=== PATIENT | male | born 1990 | race African-American/Black ===

== ENCOUNTER 2022-10-05 08:11 | Inpatient (IN) | payer OTHER, SELFPAY ==
[2022-10-05] VITALS (7 sets, daily range): BP systolic 86–118; BP diastolic 46–74; PULSE 76–89; RESP 13–21; TEMP 36.5–36.9; O2SAT 97–100; BMI 19.6
--- NOTE | ~2022-10-05 | CT_ITS ---
EXAMINATION: CT HEAD WITHOUT CONTRAST CT CERVICAL SPINE WITHOUT CONTRAST CLINICAL INFORMATION: Headache. COMPARISON: No relevant prior imaging. TECHNIQUE: House Detective images were obtained. CT imaging of the head and cervical spine was performed without contrast. Data was reformatted into multiplanar images at the acquisition workstation. This CT examination was performed using dose optimization techniques as appropriate, including one or more of the following: Automated exposure control, iterative reconstruction, and adjustment of technique factors (mA and/or kVp) according to patient size (this includes techniques or standardized protocols for targeted exams where dose is matched to indication/reason for exam). Fleischner Society criteria for the followup of incidental pulmonary nodules was implemented if appropriate. DLP: 898 mGy-cm. FINDINGS: Head: There is no acute intracranial hemorrhage or abnormal extra-axial collection. No intracranial mass effect or midline shift. Lateral and third ventricles are normal. No hydrocephalus. Black-white matter differentiation is preserved and there is no evidence of acute territorial infarct. The calvarium and skull base are intact. Mastoid air cells and middle ear cavities are well aerated. No active paranasal sinus disease. Cervical spine: Alignment is normal. Vertebral body heights are preserved. No acute cervical spinal fracture. No abnormal prevertebral soft tissue swelling. There is a broad central protrusion at C3-C4 causing at least moderate canal stenosis. Soft tissues of the neck including the thyroid gland are normal. Visualized lung apices are clear. CT/CT cervical spine wo IV con IMPRESSION: Head: No evidence of acute territorial infarct or hemorrhage. Cervical spine: There is a broad central protrusion at C3-C4 causing at least moderate canal stenosis. A dedicated cervical spinal MRI is recommended for better anatomic characterization of this finding.
--- NOTE | 2022-10-05 08:21 | ED_ITS ---
HPI - Seizure General Chief Complaint: Seizure Stated Complaint: Poss seizure per EMS Time Seen by Provider: 10/05/22 08:18 Source: EMS Limitations: other (post ictal) History of Present Illness HPI Narrative: this is a 32 years old brought in by the EMS after having a seizure. Patient as history of epilepsy very EMS is taking Keppra and Vimpat, [place] staying in [place] with and kids. At t his time the patient arrived postictal is unable to give history. MD complaint: seizure Onset (ago): hour(s) (1/2) Description of Episode: tonic-clonic movement -: minutes(s) (5) Trauma: No Seizure History: Yes Place: [facility] Possible Precipitating Event: none Related Data Home Medications Medication Instructions Recorded Confirmed albuterol sulfate 90 mcg/actuation 1 puff inhalation Q4H PRN 10/05/22 10/05/22 aerosol inhaler Shortness Of Breath Or Wheezing aspirin 81 mg tablet,delayed 81 mg PO 2XW 10/05/22 10/05/22 release escitalopram oxalate 10 mg tablet 10 mg PO DAILY PRN Anxiety 10/05/22 10/05/22 lacosamide 10 mg/mL oral solution 150 mg PO BID 10/05/22 10/05/22 levetiracetam 1,000 mg tablet 1,000 mg PO BID 10/05/22 10/05/22 lorazepam 1 mg tablet 1 mg PO DAILY PRN seizures 10/05/22 10/05/22 multivitamin 1 tab PO DAILY 10/05/22 10/05/22 Allergies Allergy/AdvReac Type Severity Reaction Status Date / Time Unable to Assess Allergy Verified 10/05/22 08:18 Review of Systems Review of Systems: Yes Unobtainable due to mental status [facility] Past Medical History [facility] Narrative: Seizure disorder Medical History (Updated 10/05/22 @ 12:33 by NICHOLAS Resendiz) Asthma Atrial fibrillation Epilepsy Severe anemia Social History Social History (Updated 10/05/22 @ 12:33 by NICHOLAS Resendiz) Alcohol intake: never Patient Tobacco Use Status: Never used Tobacco Use of substances other than those prescribed or required for medical reasons: Yes Substance Use Type: Marijuana Advance Directives: No Advance Directives Information Provided: No Physical Exam Vital Signs: Vital Signs: Last Vital Signs Temp 98.3 F 10/05/22 12:58 Pulse 80 10/05/22 13:03 Resp 16 10/05/22 13:03 BP 86/47 L 10/05/22 13:03 Pulse Ox 97 10/05/22 13:03 O2 Del Method Room Air 10/05/22 13:03 BMI result Body Mass Index 19.6 Const: General: cooperative, no acute distress, well developed, alert and awake Nutritional Appearance: average body habitus Limitations: other limitations ( post ictal status) HEENT: Head: Yes normal to inspection Ears: hearing grossly normal bilaterally General nose exam: Normal external nose present Face and sinus: Yes normal facial exam Mouth: Normal oral and palatal mucosa present Teeth and gingiva: dentition normal Throat: Yes posterior oropharynx normal Neck: Neck: Yes normal visual inspection and Yes full ROM Chest: Chest palpation & inspection: normal inspection of the chest Resp: Effort & Inspection: normal respiratory effort Auscultation: clear to auscultation bilaterally Cardio: Jugular venous distension: no JVD Rate: regular rate Rhythm: regular rhythm GI: Inspection: Yes normal to inspection Palpation (GI): Soft to palpation, not firm, nontender, no guarding and not rigid Percussion: Yes normal to percussion Skin: General skin exam: no rashes or lesions noted, elasticity normal and turgor normal Lesions: no lesions Rashes: no rashes Trauma: no lacerations or abrasions Neuro: Other: he is awake and alert but postictal appear little confuse,strenght 5/5 upper and lower extremities,reflexes plus 2 knees and upper extremities,no sensation deficit Cranial nerves: Yes CN's II-XII intact bilaterally Motor exam (neuro): 5/5 motor strength present throughout and Pronator motor function not present Course Reevaluation(s) Reevaluation #1: Spoke with [id number] 2 Months ago last seizure on keppra 750Bia and vimpat 15 ml BID (150 mg BID) Time: 09:33 Reevaluation #2: remain stable he is waiting for bed. BP at this time is 115/55 blood was given. Imaging reviewed including the cervical spine he has spinal stenosis however he has no evidence of cord compression, his strength 5/5 upper lower extremity there is no sensation deficit he was re-examined now as well, his reflexes are intact. Time: 15:30 Medications Administered Discontinued Medications Generic Name Dose Route Start Last Admin Trade Name Sam PRN Reason Stop Dose Admin Sodium Chloride 1,000 mls @ 999 mls/hr 10/05/22 08:30 10/05/22 11:56 Ns IVCONT 10/05/22 09:30 Infused .Q1H1M SERGIO Infusion Levetiracetam 1,000 mg in 100 mls @ 400 mls/hr 10/05/22 08:18 10/05/22 08:54 Keppra IV 10/05/22 08:32 Infused ONCE ONE Infusion Sodium Chloride 1,000 mls @ 999 mls/hr 10/05/22 08:30 10/05/22 11:56 Ns IVCONT 10/05/22 09:30 Infused .Q1H1M SERGIO Infusion Sodium Chloride 100 mls @ 100 mls/hr 10/05/22 10:40 10/05/22 13:10 Ns IV 10/05/22 11:39 100 mls/hr ONCE ONE Administration Levetiracetam 250 mg/ Sodium 102.5 mls @ 410 mls/hr 10/05/22 12:12 10/05/22 13:08 Chloride IV 10/05/22 12:26 410 mls/hr ONCE ONE Administration Ketorolac Tromethamine 15 mg 10/05/22 08:40 10/05/22 08:53 Ketorolac Tromethamine 15 Mg/Ml Vial IVPUSH 10/05/22 08:41 15 mg ONCE ONE Administration Medical Decision Making Medical Decision Making [facility] Narrative: patient presented after seizure per EMS he has history of epilepsy, we will obtain lab will monitor, reassess Differential Diagnosis Differential Diagnoses: The differential diagnosis associated with the presentation includes seizure disorder / alcohol withdrawal / no compliance with seizure medication Admission/Observation Consideration of admission/observation: Escalation of care including admission/observation considered Consult Healthcare Provider Management of the patient was discussed with: Hospitalist Dr landeros Lab Data [facility] Lab Attestation statement: I reviewed the patient's lab results. 10/05/22 08:27 10/05/22 08:27 Labs: Lab Results 10/05/22 10/05/22 10/05/22 Range/Units 08:27 08:27 08:27 WBC 6.0 (4.8-10.8) X10*3/uL RBC 2.14 L (4.60-5.80) X10*6/uL Hgb 6.4 L* (14.0-18.0) g/dl Hct 19.2 L* (42.0-52.0) % MCV 89.7 (80.0-98.0) fL MCH 29.9 (27.0-33.0) pg MCHC 33.3 (31.0-36.0) g/dl RDW 13.0 (11.0-16.0) % Plt Count 113 L (160-400) X10*3/uL MPV 9.8 (9.4-12.4) fL Immature Gran % (Auto) 0.3 (0.0-0.4) % Neut % (Auto) 77.7 H (45-73) % Lymph % (Auto) 11.0 L (20-40) % [place] % (Auto) 9.5 (2-11) % Eos % (Auto) 1.2 (0-4) % Baso % (Auto) 0.3 (0-2) % Lymph # (Auto) 0.7 L (1.2-4.9) X10*3/uL [place] # (Auto) 0.6 (0.1-1.2) X10*3/uL Eos # (Auto) 0.1 (0.0-0.4) X10*3/uL Baso # (Auto) 0.0 (0.0-0.2) X10*3/uL Abs Immat Gran (auto) 0.02 (0.00-0.03) X10*3/uL Absolute Neuts (auto) 4.6 (2.0-8.3) x10*3/uL Absolute Nucleated RBC 0.000 (0.0-0.012) X10*3/uL Nucleated RBC % (auto) 0.0 (0.0-0.2) /100WBC Sodium 139 (135-145) mmol/L Potassium 3.9 (3.3-5.1) mmol/L Chloride 110 H (96-108) mmol/L Carbon Dioxide 16 L (22-29) mmol/L Anion Gap 17 (12-20) BUN 13 (9-16) mg/dL Creatinine 1.23 (0.5-1.4) mg/dL Estim Creat Clear Calc 80.6 Estimated GFR > 60 Random Glucose 99 (60-115) mg/dL Calcium 9.2 (8.4-10.2) mg/dL Magnesium 2.3 (1.6-2.6) mg/dL Iron 47 (45-160) mcg/dL TIBC 250 (228-428) mcg/dL % Saturation 19 (15-50) % Unsat Iron Binding 203 ug/dL Ferritin 78 (20-250) ng/mL Total Bilirubin 0.3 (0.0-1.0) mg/dL AST 30 (5-37) U/L ALT 23 (0-40) U/L Alkaline Phosphatase 60 (39-117) U/L Lactate Dehydrogenase 201 (118-273) U/L Total Creatine Kinase (38-174) U/L Troponin I High Sens < 2.7 (<3.5-35.0) ng/L Total Protein 7.1 (6.5-8.0) g/dL Albumin 4.3 (3.5-5.0) g/dL Stool Occult Blood (NEGATIVE) Ethyl Alcohol mg/dL Blood Type Antibody Screen Crossmatch 10/05/22 10/05/22 10/05/22 Range/Units 08:27 09:13 09:20 WBC (4.8-10.8) X10*3/uL RBC (4.60-5.80) X10*6/uL Hgb (14.0-18.0) g/dl Hct (42.0-52.0) % MCV (80.0-98.0) fL MCH (27.0-33.0) pg MCHC (31.0-36.0) g/dl RDW (11.0-16.0) % Plt Count (160-400) X10*3/uL MPV (9.4-12.4) fL Immature Gran % (Auto) (0.0-0.4) % Neut % (Auto) (45-73) % Lymph % (Auto) (20-40) % [place] % (Auto) (2-11) % Eos % (Auto) (0-4) % Baso % (Auto) (0-2) % Lymph # (Auto) (1.2-4.9) X10*3/uL [place] # (Auto) (0.1-1.2) X10*3/uL Eos # (Auto) (0.0-0.4) X10*3/uL Baso # (Auto) (0.0-0.2) X10*3/uL Abs Immat Gran (auto) (0.00-0.03) X10*3/uL Absolute Neuts (auto) (2.0-8.3) x10*3/uL Absolute Nucleated RBC (0.0-0.012) X10*3/uL Nucleated RBC % (auto) (0.0-0.2) /100WBC Sodium (135-145) mmol/L Potassium (3.3-5.1) mmol/L Chloride (96-108) mmol/L Carbon Dioxide (22-29) mmol/L Anion Gap (12-20) BUN (9-16) mg/dL Creatinine (0.5-1.4) mg/dL Estim Creat Clear Calc Estimated GFR Random Glucose (60-115) mg/dL Calcium (8.4-10.2) mg/dL Magnesium (1.6-2.6) mg/dL Iron (45-160) mcg/dL TIBC (228-428) mcg/dL % Saturation (15-50) % Unsat Iron Binding ug/dL Ferritin (20-250) ng/mL Total Bilirubin (0.0-1.0) mg/dL AST (5-37) U/L ALT (0-40) U/L Alkaline Phosphatase (39-117) U/L Lactate Dehydrogenase (118-273) U/L Total Creatine Kinase 749 H (38-174) U/L Troponin I High Sens (<3.5-35.0) ng/L Total Protein (6.5-8.0) g/dL Albumin (3.5-5.0) g/dL Stool Occult Blood NEGATIVE (NEGATIVE) Ethyl Alcohol < 10 mg/dL Blood Type A Positive Antibody Screen NEGATIVE Crossmatch See Detail Independent Interpretation I performed an independent interpretation of an: CT Scan Radiology Impression Discussion of test interpretation with radiology: I have reviewed the radiologist's reading. Radiologist Impression: FINDINGS: Head: There is no acute intracranial hemorrhage or abnormal extra-axial collection. No intracranial mass effect or midline shift. Lateral and third ventricles are normal. No hydrocephalus. Black-white matter differentiation is preserved and there is no evidence of acute territorial infarct. The calvarium and skull base are intact. Mastoid air cells and middle ear cavities are well aerated. No active paranasal sinus disease. Cervical spine: Alignment is normal. Vertebral body heights are preserved. No acute cervical spinal fracture. No abnormal prevertebral soft tissue swelling. There is a broad central protrusion at C3-C4 causing at least moderate canal stenosis. Soft tissues of the neck including the thyroid gland are normal. Visualized lung apices are clear. CT/CT cervical spine wo IV con IMPRESSION: Head: No evidence of acute territorial infarct or hemorrhage. ? Cervical spine: There is a broad central protrusion at C3-C4 causing at least moderate canal stenosis. A dedicated cervical spinal MRI is recommended for better anatomic characterization of this finding. Dictated By: Patel Ruiz MD Signed By: <Electronically signed by Patel Ruiz MD in OV> 10/05/22 1052 DD/ 1002 TD/TT:? 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 History obtained fr om or confirmed by: Other ( called by me) Chronic Conditions epilepsy Critical Care Time Critical Care Time Critical Care Time: Yes Total Critical Care Time: 60 Attestation: blood transfusion order/speaking with the X 2 , taking care of the patient, talking with the hospitalist Dr Coker Discharge Plan Discharge Clinical Impression: Epileptic seizure, Anemia Patient Disposition: Admitted As Inpatient
[2022-10-05] MEDS: levETIRAcetam in NaCl (iso-os) 1,000 MG/100 ML PIGGYBACK 400 MG IV (08:33)
[2022-10-05] MEDS: 0.9 % Sodium Chloride 1,000 ML 999 ML IVCONT ×2 (08:33→10:07)
[2022-10-05 08:47] LABS: MANUAL DIFF FLAG NO
[2022-10-05 08:48] LABS: Basophils Percent Auto 0.3 % (0-2); Eosinophils Absolute Auto 0.1 X10*3/uL (0.0-0.4); Eosinophils Percent Auto 1.2 % (0-4); Imm Gran Abs Auto 0.02 X10*3/uL (0.00-0.03); Imm Gran Pct Auto 0.3 % (0.0-0.4); Lymphocytes Absolute Auto 0.7 X10*3/uL (1.2-4.9); Mean Corpuscular HGB Conc 33.3 g/dl (31.0-36.0); Mean Corpuscular Hemoglobin 29.9 pg (27.0-33.0); Mean Corpuscular Volume 89.7 fL (80.0-98.0); Mean Platelet Volume 9.8 fL (9.4-12.4); Monocytes Absolute Auto 0.6 X10*3/uL (0.1-1.2); Monocytes Percent Auto 9.5 % (2-11); Neutrophils Absolute Auto 4.6 x10*3/uL (2.0-8.3); Neutrophils Percent Auto 77.7 % (45-73); Platelet Count 113 X10*3/uL (160-400); Red Blood Count 2.14 X10*6/uL (4.60-5.80)
[2022-10-05] MEDS: Ketorolac Tromethamine 15 MG/ML VIAL IVPUSH (08:53)
--- NOTE | 2022-10-05 09:03 | PC.NURSE ---
patient brought in by EMS after witnessed seizure, prior history of seizures, patient is in post ictal state, VSS. patient had field iv 18# in the L AC, patent. Given IV keppra, fluids and toradol. patients only complaint is headache, denies headstrike. DR Ness Spoke with Ariadne [phone]
[2022-10-05 09:05] LABS: Alanine Aminotransferase 23 U/L (0-40); Albumin Level 4.3 g/dL (3.5-5.0); Alkaline Phosphatase 60 U/L (39-117); Anion Gap 17 (12-20); Aspartate Amino Transferase 30 U/L (5-37); Bilirubin Total 0.3 mg/dL (0.0-1.0); Blood Urea Nitrogen 13 mg/dL (9-16); Calcium 9.2 mg/dL (8.4-10.2); Carbon Dioxide 16 mmol/L (22-29); Chloride 110 mmol/L (96-108); Creatinine Clr Calc Pharmacy 80.6; Estimated Glomerular Filt Rate > 60; Ethanol < 10 mg/dL; Glucose Random 99 mg/dL (60-115); Magnesium 2.3 mg/dL (1.6-2.6); Potassium 3.9 mmol/L (3.3-5.1); Sodium 139 mmol/L (135-145); Total Protein 7.1 g/dL (6.5-8.0)
[2022-10-05 09:07] LABS: Hematocrit 19.2 % (42.0-52.0); Hemoglobin 6.4 g/dl (14.0-18.0)
[2022-10-05 09:20] LABS: OBS Int Ctl Valid YES; OBS1 NEGATIVE (NEGATIVE)
[2022-10-05 09:27] LABS: Troponin-I High Sensitivity < 2.7 ng/L (<3.5-35.0)
--- NOTE | 2022-10-05 09:28 | PC.NURSE ---
patient iv placed in the 20 R forearm. patient type and screen drawn and sent down. pt at cat scan
--- NOTE | 2022-10-05 10:58 | PHA.MEDREC ---
Pharmacy Consult ? Medication Reconciliation Pharmacy has completed the medication reconciliation. spoke with patient's over the phoneto confirm medications. Vimpat is prescribed for 250mg BID but confirmed 150mg BID. She reports that he takes baby aspirin OTC a few time a week.
--- NOTE | 2022-10-05 11:26 | PC.NURSE ---
patient blood tranfusion started, pt awake and alert x3. VSS, respirations eqaul and unlabored, pt shows no signs of distress able to make needs known.
[2022-10-05 11:35] LABS: Iron 47 mcg/dL (45-160); Lactate Dehydrogenase 201 U/L (118-273); Percent Iron Saturation 19 % (15-50); Total Iron Binding Capacity 250 mcg/dL (228-428); Unsaturated Iron Binding 203 ug/dL
[2022-10-05 11:55] LABS: Ferritin 78 ng/mL (20-250)
--- NOTE | 2022-10-05 12:22 | PM.IMHP ---
History of Present Illness Date of Service: 10/05/22 <NICHOLAS Resendiz - Last Filed: 10/05/22 12:41> Attending physician on admission: Elmo Cassidy <NICHOLAS Resendiz - Last Filed: 10/05/22 12:41> Chief Complaint: seizure <NICHOLAS Resendiz - Last Filed: 10/05/22 12:41> 32-year-old male with history of mild intermittent asthma, epileptic seizure disorder, patient reported history of atrial fibrillation on aspirin twice weekly who is a regular marijuana smoker but denies any alcohol use, cigarette smoking, or illicit drug use presents to the ED via EMS for evaluation breakthrough seizure. The patient is visiting the area from [place] where he resides as his sister is getting this afternoon. While in his hotel room, his reported to EMS the patient having a tonic-clonic seizure. On arrival to the ED, patient was postictal but is now able to provide history. He reports compliance with his antiepileptic medications but does endorse some increased stress recently. He denies any fevers, chills, sore throat, congestion, abd pain, n/v/d, myalgias, arthalgias, fatigue, weakness, cough, sob, chest pain. No known tick bites. On arrival to the ED, vital signs stable, the blood pressure soft. There is no leukocytosis. He has a severe normocytic anemia with H/H 6.4/19.2%, MCV 89.7, platelets 113 renal function normal, electrolyte levels normal except for CO2 of 16 hepatic function normal. Iron studies normal. LDH 201. Total CK 749. Troponin below detectable limits. Ethyl alcohol level undetectable. Keppra level pending. Stool occult blood negative. Head CT negative for any acute intracranial abnormality. CT of the cervical spine shows a broad central protrusion at C3-C4 causing at least moderate spinal canal stenosis, recommend dedicated cervical spine MRI. The patient denies any neck pain or radicular symptoms. No weakness or paresthesias in the upper extremities. In the ED, given 1000 mg IV Keppra, 50 mg ketorolac, and 2 L IV NS. <NICHOLAS Resendiz - Last Filed: 10/05/22 12:41> Review of Systems Review of Systems: General: No fevers, malaise, unintentional weight loss HEENT: No blurred vision, diplopia. No sore throat, nasal congestion, rhinorrhea, sinus pain, ear pain Cardiovascular: No chest pain, palpitations, or leg edema Respiratory: No shortness of breath, wheezing, cough GI: No abdominal pain, nausea, vomiting, diarrhea, constipation, melena, hematochezia : No dysuria, hematuria, increased urinary frequency, decreased urinary output MSK: No myalgia, back pain Neuro: No headaches, weakness, paresthesias. +seizure Skin: No rashes or lesions <NICHOLAS Resendiz - Last Filed: 10/05/22 12:41> [facility] Medical History: Medical History (Updated 10/05/22 @ 12:33 by NICHOLAS Resendiz) Asthma Atrial fibrillation Epilepsy Severe anemia <NICHOLAS Resendiz - Last Filed: 10/05/22 12:41> Social History: Social History (Updated 10/05/22 @ 12:33 by NICHOLAS Resendiz) Alcohol intake: never Patient Tobacco Use Status: Never used Tobacco Use of substances other than those prescribed or required for medical reasons: Yes Substance Use Type: Marijuana Advance Directives: No Advance Directives Information Provided: No <NICHOLAS Resendiz - Last Filed: 10/05/22 12:41> Meds Allergies/Adverse reactions: Allergies Allergy/AdvReac Type Severity Reaction Status Date / Time Unable to Assess Allergy Verified 10/05/22 08:18 <NICHOLAS Resendiz - Last Filed: 10/05/22 12:41> Active Medications: Current Medications Acetaminophen (Acetaminophen 325 Mg Tablet) 650 mg PO Q6H PRN PRN Reason: Pain, Mild (Pain Scale 1-3) Docusate Sodium (Docusate Sodium 100 Mg Capsule) 100 mg PO DAILY PRN PRN Reason: Constipation Levetiracetam 250 mg/ Sodium (Chloride) 102.5 mls @ 410 mls/hr IV ONCE ONE Stop: 10/05/22 12:26 Levetiracetam (Levetiracetam 500 Mg/5 Ml Vial) 1,250 mg IV BID SEGRIO Ondansetron HCl (Ondansetron Hcl 4 Mg/2 Ml Vial) 4 mg IVPUSH Q8H PRN PRN Reason: Nausea and Vomiting Pharmacy Consult (Consult Rx Perform Med Rec) 1 each MISCELLANE ONCE PRN PRN Reason: Consult order Sodium Chloride (0.9 % Sodium Chloride Flush 3 Ml Syringe) [address] [facility] <NICHOLAS Resendiz - Last Filed: 10/05/22 12:41> Home medications: Home Medications Medication Instructions Recorded Confirmed Last Taken Type albuterol sulfate 90 mcg/actuation 1 puff inhalation Q4H PRN 10/05/22 10/05/22 Unknown History aerosol inhaler Shortness Of Breath Or Wheezing aspirin 81 mg tablet,delayed 81 mg PO 2XW 10/05/22 10/05/22 Unknown History release escitalopram oxalate 10 mg tablet 10 mg PO DAILY PRN Anxiety 10/05/22 10/05/22 Unknown History lacosamide 10 mg/mL oral solution 150 mg PO BID 10/05/22 10/05/22 Unknown History levetiracetam 1,000 mg tablet 1,000 mg PO BID 10/05/22 10/05/22 Unknown History lorazepam 1 mg tablet 1 mg PO DAILY PRN seizures 10/05/22 10/05/22 Unknown History multivitamin 1 tab PO DAILY 10/05/22 10/05/22 Unknown History <NICHOLAS Resendiz - Last Filed: 10/05/22 12:41> Physical Exam Vital Signs and Narrative: Vital Signs: Last Vital Signs Temp 98.1 F 10/05/22 11:40 Pulse 89 10/05/22 11:40 Resp 14 10/05/22 11:40 BP 106/52 L 10/05/22 11:40 Pulse Ox 97 10/05/22 10:09 O2 Del Method Room Air 10/05/22 10:09 BMI result Body Mass Index 19.6 <NICHOLAS Resendiz - Last Filed: 10/05/22 12:41> Constitutional - Awake and Alert, No apparent distress Eyes - PERRLA, EOMI Mouth- tongue bites noted to the bilateral tongue Cardiovascular - S1S2, RRR, No edema Respiratory - Normal lung expansion, Normal respiratory effort, No respiratory distress, CTA bilaterally Gastrointestinal - NT / ND; +BS; No rebound or guarding Extremities - no calf tenderness bilaterally, no swelling Skin - Warm/Dry Neurological - Alert & oriented x3, CN II-XII in tact, 5/5 strength BUE and BLE Psychological - Appropriate affect <NICHOLAS Resendiz - Last Filed: 10/05/22 12:41> Results Labs CBC and Chem 7: 10/05/22 08:27 10/05/22 08:27 <NICHOLAS Resendiz - Last Filed: 10/05/22 12:41> Labs: Laboratory Results - last 24 hr 10/05/22 10/05/22 10/05/22 08:27 08:27 08:27 MCV 89.7 MCH 29.9 MCHC 33.3 RDW 13.0 Plt Count 113 L MPV 9.8 Immature Gran % (Auto) 0.3 Neut % (Auto) 77.7 H Lymph % (Auto) 11.0 L [place] % (Auto) 9.5 Eos % (Auto) 1.2 Baso % (Auto) 0.3 Lymph # (Auto) 0.7 L [place] # (Auto) 0.6 Eos # (Auto) 0.1 Baso # (Auto) 0.0 Abs Immat Gran (auto) 0.02 Absolute Neuts (auto) 4.6 Absolute Nucleated RBC 0.000 Nucleated RBC % (auto) 0.0 Anion Gap 17 Estim Creat Clear Calc 80.6 Estimated GFR > 60 Random Glucose 99 Calcium 9.2 Magnesium 2.3 Iron 47 TIBC 250 % Saturation 19 Unsat Iron Binding 203 Ferritin 78 Total Bilirubin 0.3 AST 30 ALT 23 Alkaline Phosphatase 60 Lactate Dehydrogenase 201 Total Creatine Kinase 749 H Total Protein 7.1 Albumin 4.3 Stool Occult Blood Ethyl Alcohol < 10 Blood Type Antibody Screen Crossmatch 10/05/22 10/05/22 09:13 09:20 MCV MCH MCHC RDW Plt Count MPV Immature Gran % (Auto) Neut % (Auto) Lymph % (Auto) [place] % (Auto) Eos % (Auto) Baso % (Auto) Lymph # (Auto) [place] # (Auto) Eos # (Auto) Baso # (Auto) Abs Immat Gran (auto) Absolute Neuts (auto) Absolute Nucleated RBC Nucleated RBC % (auto) Anion Gap Estim Creat Clear Calc Estimated GFR Random Glucose Calcium Magnesium Iron TIBC % Saturation Unsat Iron Binding Ferritin Total Bilirubin AST ALT Alkaline Phosphatase Lactate Dehydrogenase Total Creatine Kinase Total Protein Albumin Stool Occult Blood NEGATIVE Ethyl Alcohol Blood Type A Positive Antibody Screen NEGATIVE Crossmatch See Detail <NICHOLAS Resendiz - Last Filed: 10/05/22 12:41> Imaging Radiologist's Impressions: Impressions Cervical Spine CT 10/05/22 10:02 IMPRESSION: Head: No evidence of acute territorial infarct or hemorrhage. Cervical spine: There is a broad central protrusion at C3-C4 causing at least moderate canal stenosis. A dedicated cervical spinal MRI is recommended for better anatomic characterization of this finding. Head CT 10/05/22 10:02 IMPRESSION: Head: No evidence of acute territorial infarct or hemorrhage. Cervical spine: There is a broad central protrusion at C3-C4 causing at least moderate canal stenosis. A dedicated cervical spinal MRI is recommended for better anatomic characterization of this finding. <NICHOLAS Resendiz - Last Filed: 10/05/22 12:41> Assessment and Plan (1) Epileptic seizure: Status: Acute <NICHOLAS Resendiz - Last Filed: 10/05/22 12:41> (2) Anemia: Status: Acute <NICHOLAS Resendiz - Last Filed: 10/05/22 12:41> 32-year-old male with history of mild intermittent asthma, epileptic seizure disorder, patient reported history of atrial fibrillation on aspirin twice weekly who is a regular marijuana smoker but denies any alcohol use, cigarette smoking, or illicit drug use to be observed for breakthrough seizure with severe anemia. #Epilepsy with breakthrough seizure -increase keppra to 1250mg BID IV -Continue vimpat -Neuro consult -seizure precautions #Severe anemia -suspect acute on chronic but etiology unclear -No known hx bleeding disorders/anemia -Renal function normal -Iron studies normal, LDH normal. Vitamin B12, folic acid, retic count hemoglobin electrophoresis pending -1 unit PRBC given in ED -Repeat CBC @5pm, then am -peripheral smear pending -hold aspirin #Elevated CK -r/t seizure, not rhabdo #Thombocytopenia - chronicity and etiology unclear -Outpt follow up #Mild intermittent asthma -no acute exacerbation -albuterol p.r.n. # paroxysmal atrial fibrillation-rate controlled -hold aspirin DVT prophylaxis-Scp, early ambulation Full code <NICHOLAS Resendiz - Last Filed: 10/05/22 12:41> 32-year-old male with history of mild intermittent asthma, epileptic seizure disorder, patient reported history of atrial fibrillation on aspirin twice weekly who is a regular marijuana smoker but denies any alcohol use, cigarette smoking, or illicit drug use to be observed for breakthrough seizure with severe anemia. #Epilepsy with breakthrough seizure -increase keppra to 1250mg BID IV -Continue vimpat -Neuro consult -seizure precautions #Severe anemia -suspect acute on chronic but etiology unclear -No known hx bleeding disorders/anemia -Renal function normal -Iron studies normal, LDH normal. Vitamin B12, folic acid, retic count hemoglobin electrophoresis pending -1 unit PRBC given in ED -Repeat CBC @5pm, then am -peripheral smear pending -hold aspirin #Elevated CK -r/t seizure, not rhabdo #Thombocytopenia - chronicity and etiology unclear -Outpt follow up #Mild intermittent asthma -no acute exacerbation -albuterol p.r.n. # paroxysmal atrial fibrillation-rate controlled -hold aspirin DVT prophylaxis-Scp, early ambulation Full code Addendum to history and physical by the advanced practice provider, NICHOLAS Salinas I interviewed and examined the patient. I discussed their presentation and management with the ARRON. I reviewed the history and physical and agree with the documentation, with the following additions and corrections: 32yo M with mild int asthma, seizure disorder on Vimpat + Keppra [thinks he missed 1 dose last night], ?AF on ASA visiting from [place] Had tonic-clonic seizure in hotel per his report to EMS Postictal upon arrival in ED, now awake/alert Noted to have normocytic hypoproliferative anemia with Hb 6.4 Plts 113 No known hx of anemia but doesn't think he ever had blood work done FOBT neg Transfused 1u pRBCs and given 1g IV Keppra Plan admit to M/S, recheck H+H, Pathology to review peripheral smear, check HIV Increase keppra to 1250 mg bid <Elmo Cassidy MD - Last Filed: 10/05/22 14:43> Time Spent With Patient Time: Total time managing care of this patient today ____ minutes. <NICHOLAS Resendiz - Last Filed: 10/05/22 12:41> Quality Stroke Does the patient have a stroke diagnosis?: No <NICHOLAS Resendiz - Last Filed: 10/05/22 12:41> VTE Prior VTE?: No <NICHOLAS Resendiz - Last Filed: 10/05/22 12:41> VTE Risk Level:: Medical - moderate - high <NICHOLAS Resendiz - Last Filed: 10/05/22 12:41> VTE Device Contraindication: N/A - Device Ordered <NICHOLAS Resendiz - Last Filed: 10/05/22 12:41> VTE Drug Contraindication: Treatment Not Indicated <NICHOLAS Resendiz - Last Filed: 10/05/22 12:41>
[2022-10-05] MEDS: levETIRAcetam 250 MG in 0.9 % Sodium Chloride 100 ML 410 MG IV (13:08)
[2022-10-05 13:13] LABS: Immature Retic Fraction 5.6 % (2.3-13.4); Retic HGB Equivalent 35.3 pg (30.0-35.0); Reticulocyte Percent 0.9 % (0.5-1.8); Reticulocytes Absolute 0.039 X10*6/uL (0.026-0.095)
[2022-10-05 13:57] LABS: Folate 10.9 ng/mL (> or = 4.0); Vitamin B12 553 pg/mL (200-900)
--- NOTE | 2022-10-05 16:22 | PC.NURSE ---
patient requested to be d/c, spoke [facility] inpatient PA about d/c. she spoke with patient about risks, discharge was approved. patients came and picked him up.
--- NOTE | 2022-10-05 16:23 | PM.DS ---
DS: Providers Provider Date of Service: 10/05/22 Date of admission: 10/05/22 12:09 Date of discharge: 10/05/22 Primary care physician: Nonstaff Physician Admitting clinician: Carla Salinas Attending physician on admission: Elmo Cassidy Consults: 10/05/22 12:12 Consult to Neurology Routine Consulting Provider: [facility] Reason for consultation: breakthrough seizure Attending physician on discharge: Elmo Cassidy Discharging clinician: Carla Salinas DS: Diagnosis Discharge Diagnosis (1) Epileptic seizure: Status: Acute (2) Anemia: Status: Acute DS: Summary Hospital Course Hospital Course: HPI on admission: 32-year-old male with history of mild intermittent asthma, epileptic seizure disorder, patient reported history of atrial fibrillation on aspirin twice weekly who is a regular marijuana smoker but denies any alcohol use, cigarette smoking, or illicit drug use presents to the ED via EMS for evaluation breakthrough seizure.? The patient is visiting the area from [place] where he resides as his sister is getting this afternoon.? While in his hotel room, his reported to EMS the patient having a tonic-clonic seizure.? On arrival to the ED, patient was postictal but is now able to provide history.? He reports compliance with his antiepileptic medications but does endorse some increased stress recently. He denies any fevers, chills, sore throat, congestion, abd pain, n/v/d, myalgias, arthalgias, fatigue, weakness, cough, sob, chest pain. No known tick bites. On arrival to the ED, vital signs stable, the blood pressure soft.? There is no leukocytosis.? He has a severe normocytic anemia with H/H 6.4/19.2%, MCV 89.7, platelets 113 renal function normal, electrolyte levels normal except for CO2 of 16 hepatic function normal.? Iron studies normal.? LDH 201.? Total CK 749.? Troponin below detectable limits.? Ethyl alcohol level undetectable.? Keppra level pending.? Stool occult blood negative.? Head CT negative for any acute intracranial abnormality.? CT of the cervical spine shows a broad central protrusion at C3-C4 causing at least moderate spinal canal stenosis, recommend dedicated cervical spine MRI.? The patient denies any neck pain or radicular symptoms.? No weakness or paresthesias in the upper extremities.? In the ED, given 1000 mg IV Keppra, 50 mg ketorolac, and 2 L IV NS. Hospital course: Hospital course uneventful. Pt admitted to observation. Given 1250mg IV keppra. On further discussion, patient reports he did forget to take his medication last night which accounts for the breakthrough seizure this morning. Incidentally was also found to have severe anemia with H/H 6.4/19.2%. He was transfused 1 unit packed red blood cells while boarding in the ED. Unfortunately, repeat H/H was unable to be checked as patient desires to leave against medical advice. Further testing into the etiology of his anemia did take place. Stool occult blood was negative. LDH was within normal limits, iron studies normal, retic count low normal. Platelets also noted to be low at 113. Peripheral smear pending pathology report. Vitamin B12 and folic acid levels normal. Hemoglobin electrophoresis collected but pending. Also unable to assess HIV prior to patient leaving AMA. He is advised to remain off of aspirin until evaluated by his primary care provider and should also see his neurologist. He is counseled on the risks of severe anemia left 2 including heart failure, heart attack, syncope, among others. He is alert and oriented and expresses understanding. He does sign AMA paperwork. Status at Discharge Functional status at discharge: independent ambulation Overall status at discharge: patient is back to baseline Time Spent with Patient Time attestation: Total time managing care of this patient today ____ minutes. Discharge coordination time: Greater than 30 minutes Quality: Safe Use of Opioids Does Pt have an Active Cancer Diagnosis on the Problem List?: No Quality: Stroke Does the patient have a stroke diagnosis?: No Physical Exam Vital Signs: Vital Signs: Last Vital Signs Temp 98.5 F 10/05/22 15:27 Pulse 76 10/05/22 15:27 Resp 16 10/05/22 15:27 BP 115/55 L 10/05/22 15:27 Pulse Ox 100 10/05/22 15:27 O2 Del Method Room Air 10/05/22 15:27 BMI result Body Mass Index 19.6 DS: Data Data Completed and Pending Labs on day of discharge: Laboratory Results - last 24 hr 10/05/22 10/05/22 10/05/22 08:27 08:27 08:27 WBC 6.0 RBC 2.14 L Hgb 6.4 L* Hct 19.2 L* MCV 89.7 MCH 29.9 MCHC 33.3 RDW 13.0 Plt Count 113 L MPV 9.8 Immature Gran % (Auto) 0.3 Neut % (Auto) 77.7 H Lymph % (Auto) 11.0 L [place] % (Auto) 9.5 Eos % (Auto) 1.2 Baso % (Auto) 0.3 Lymph # (Auto) 0.7 L [place] # (Auto) 0.6 Eos # (Auto) 0.1 Baso # (Auto) 0.0 Abs Immat Gran (auto) 0.02 Absolute Neuts (auto) 4.6 Absolute Nucleated RBC 0.000 Nucleated RBC % (auto) 0.0 Absolute Retic Percent Retic Immature Retic Fraction Retic Hgb Equivalent Sodium 139 Potassium 3.9 Chloride 110 H Carbon Dioxide 16 L Anion Gap 17 BUN 13 Creatinine 1.23 Estim Creat Clear Calc 80.6 Estimated GFR > 60 Random Glucose 99 Calcium 9.2 Magnesium 2.3 Iron 47 TIBC 250 % Saturation 19 Unsat Iron Binding 203 Ferritin 78 Total Bilirubin 0.3 AST 30 ALT 23 Alkaline Phosphatase 60 Lactate Dehydrogenase 201 Total Creatine Kinase Troponin I High Sens < 2.7 Total Protein 7.1 Albumin 4.3 Vitamin B12 Folate Stool Occult Blood Ethyl Alcohol Blood Type Antibody Screen Crossmatch 10/05/22 10/05/22 10/05/22 08:27 09:13 09:20 WBC RBC Hgb Hct MCV MCH MCHC RDW Plt Count MPV Immature Gran % (Auto) Neut % (Auto) Lymph % (Auto) [place] % (Auto) Eos % (Auto) Baso % (Auto) Lymph # (Auto) [place] # (Auto) Eos # (Auto) Baso # (Auto) Abs Immat Gran (auto) Absolute Neuts (auto) Absolute Nucleated RBC Nucleated RBC % (auto) Absolute Retic Percent Retic Immature Retic Fraction Retic Hgb Equivalent Sodium Potassium Chloride Carbon Dioxide Anion Gap BUN Creatinine Estim Creat Clear Calc Estimated GFR Random Glucose Calcium Magnesium Iron TIBC % Saturation Unsat Iron Binding Ferritin Total Bilirubin AST ALT Alkaline Phosphatase Lactate Dehydrogenase Total Creatine Kinase 749 H Troponin I High Sens Total Protein Albumin Vitamin B12 Folate Stool Occult Blood NEGATIVE Ethyl Alcohol < 10 Blood Type A Positive Antibody Screen NEGATIVE Crossmatch See Detail 10/05/22 10/05/22 12:48 12:48 WBC RBC Hgb Hct MCV MCH MCHC RDW Plt Count MPV Immature Gran % (Auto) Neut % (Auto) Lymph % (Auto) [place] % (Auto) Eos % (Auto) Baso % (Auto) Lymph # (Auto) [place] # (Auto) Eos # (Auto) Baso # (Auto) Abs Immat Gran (auto) Absolute Neuts (auto) Absolute Nucleated RBC Nucleated RBC % (auto) Absolute Retic 0.039 Percent Retic 0.9 Immature Retic Fraction 5.6 Retic Hgb Equivalent 35.3 H Sodium Potassium Chloride Carbon Dioxide Anion Gap BUN Creatinine Estim Creat Clear Calc Estimated GFR Random Glucose Calcium Magnesium Iron TIBC % Saturation Unsat Iron Binding Ferritin Total Bilirubin AST ALT Alkaline Phosphatase Lactate Dehydrogenase Total Creatine Kinase Troponin I High Sens Total Protein Albumin Vitamin B12 553 Folate 10.9 Stool Occult Blood Ethyl Alcohol Blood Type Antibody Screen Crossmatch Discharge Plan Discharge Anticipated Discharge Date/Time: 10/05/22 16:10 Patient Disposition: Left Against Medical Advice Discharge Diagnosis: severe anemia, breakthrough seizure Referrals: Physician,Nonstaff [Primary Care Provider] - 1 Week Discharge Medications: Continued multivitamin Tablet 1 tab PO DAILY aspirin 81 mg Tablet,Delayed Release (Dr/Ec) 81 mg PO 2XW lorazepam 1 mg tablet 1 mg PO DAILY PRN (Reason: seizures) albuterol sulfate 90 mcg/actuation HFA aerosol inhaler 1 puff inhalation Q4H PRN (Reason: Shortness Of Breath Or Wheezing) escitalopram oxalate 10 mg tablet 10 mg PO DAILY PRN (Reason: Anxiety) levetiracetam 1,000 mg tablet 1,000 mg PO BID lacosamide 10 mg/mL solution 150 mg PO BID Discharge Orders: Discharge Order (Routine); Ordered 10/05/22 Ordered By: Carla Salinas Diet: Advance to usual diet Activity on Discharge: As tolerated Stand Alone Forms: Work/School Release Care Plan Goals: Uncover cause of anemia Medication compliance to prevent breakthrough seizures Health Concerns: Epileptic seizure Severe anemia Plan of Treatment: You were treated with IV keppra in the ED. After further discussion you were uncertain if you may have missed a dose of your medication which could have caused the breakthrough seizure. Continue keppra 1000mg twice daily and vimpat 150mg twice daily. Follow up with neurologist. Severe anemia- cause unclear at this time. You are not bleeding and there was no blood in your stool. Iron studies were normal and your LDH and reticulocyte counts (can be markers of hemolysis) were normal as well. Your hemoglobin electrophoresis remains pending. You were transfused 1 unit red blood cells. You need to follow up with you pcp to further investigate this severe anemia. We discussed the effects of untreated severe anemia which can lead to heart failure, heart attack, or syncope among other things. You are leaving against medical advice and have been advised of these things and advised to seek medical advice should you experience worsening symptoms. Follow up with your pcp soon. Assessment: as above
[2022-10-06 04:34] LABS: HIV AB/AG Nonreactive (Nonreactive); HIV Num 1 0.05 S/CO (0.00-0.99)
[2022-10-06 23:09] LABS: Hematocrit 35.8 % (38.5-50.0); Hemoglobin 12.4 g/dL (13.2-17.1); MCH 29.4 pg (27.0-33.0); MCV 84.8 fL (80.0-100.0); RBC 4.22 Million/uL (4.20-5.80); RDW 12.7 % (11.0-15.0)
[2022-10-07 19:08] LABS: Levetiracetam Keppra 23.8 mcg/mL (6.0-46.0)
== END 2022-10-05 18:34 | disposition left against medical advice (07) | DRG 101 ==
LOC: HO.ED 10:48 → HO.EDOVER 12:34 → HO.S3 15:29
PROVIDERS: Internal Medicine; Admitting Provider Physician Assistant; Emergency Provider Emergency Medicine; Visit Provider Family Medicine
DX: G40.909 Epilepsy, unspecified, not intractable, without status epilepticus (principal); D64.9 Anemia, unspecified; J45.20 Mild intermittent asthma, uncomplicated; I48.0 Paroxysmal atrial fibrillation; D69.6 Thrombocytopenia, unspecified; Z79.82 Long term (current) use of aspirin; Z79.899 Other long term (current) drug therapy
CPT/HCPCS: 36415; 70450; 72125; 80053; 80177; 80307; 82272; 82550; 82607; 82728; 82746; 83020; 83540; 83615; 83735; 84484; 85014; 85018; 85025; 85041; 85045; 86850; 86900; 86901; 86923; 87389; 99221; 99284; J1885; J1953; P9016

== ENCOUNTER → 2022-10-05 12:09 | Outpatient (BNV) | payer OTHER, SELFPAY | PROVIDERS: Admitting Provider Physician Assistant; Emergency Provider Emergency Medicine; Visit Provider Physician Assistant | DX: G40.909 Epilepsy, unspecified, not intractable, without status epilepticus (principal); D64.9 Anemia, unspecified | CPT/HCPCS: 99236; 99499 ==